=== PATIENT | male | born 1965 | race Caucasian/White ===

== ENCOUNTER 2018-11-21 05:25 | Day surgery (SDC) | payer OTHER ==
[2018-11-13 16:01] LABS: BASOPHILS # (AUTO) 0.1 X10'3 (0-0.2); BASOPHILS % (AUTO) 1.2 % (0-1); EOSINOPHILS # (AUTO) 0.2 X10'3 (0-0.9); EOSINOPHILS % (AUTO) 1.3 % (0-6); HEMATOCRIT 51.9 % (42.0-52.0); HEMOGLOBIN 17.4 g/dl (14.0-17.9); LYMPHOCYTES # (AUTO) 2.2 X10'3 (1.1-4.8); LYMPHOCYTES % (AUTO) 18.2 % (21-51); MEAN CORPUSCULAR HEMOGLOBIN 30.3 PG (27.0-31.0); MEAN CORPUSCULAR HGB CONC 33.6 g/dL (33.0-36.5); MEAN PLATELET VOLUME 8.4 FL (7.4-10.4); MONOCYTES # (AUTO) 1.1 X10'3 (0-0.9); MONOCYTES % (AUTO) 9.1 % (2-12); NEUTROPHILS # (AUTO) 8.4 X10'3 (1.8-7.7); NEUTROPHILS % (AUTO) 70.2 % (42-75); PLATELET COUNT 357 X10'3 (140-440); RED BLOOD COUNT 5.76 X10'6 (4.70-6.10); RED CELL DISTRIBUTION WIDTH 15.3 % (11.5-14.5)
[2018-11-13 16:19] LABS: ALANINE AMINOTRANSFERASE 59 U/L (12-78); ALBUMIN 2.9 G/DL (3.4-5.0); ALBUMIN/GLOBULIN RATIO 0.6 (1.1-1.5); ALKALINE PHOSPHATASE 106 IU/L (46-116); ANION GAP 8 (8-16); BILIRUBIN,TOTAL 0.3 MG/DL (0.1-1.0); BLOOD UREA NITROGEN 21 MG/DL (7-18); BUN/CREATININE RATIO 28.4 (5.4-32.0); CALCIUM 9.6 MG/DL (8.5-10.1); CHLORIDE 103 MMOL/L (99-107); CREATININE 0.74 MG/DL (0.60-1.10); GLUCOSE 237 MG/DL (70-104); SODIUM 138 MMOL/L (135-145); TOTAL CARBON DIOXIDE 27.2 MMOL/L (24-32); TOTAL PROTEIN 7.8 G/DL (6.4-8.2); eGFR > 90 ML/MIN
[2018-11-13 16:23] LABS: POTASSIUM 4.8 MMOL/L (3.5-5.1)
[2018-11-13 16:29] LABS: ASPARTATE AMINO TRANSFERASE 47 U/L (10-37)
[~2018-11-21] VITALS: Ht 167.6 cm; Wt 123.0 kg
[2018-11-21] VITALS (7 sets, daily range): BP systolic 123–156; BP diastolic 72–88
[~2018-11-21 05:25] MED LIST: CHOL100046 PO; GABA-532 PO; HYDR-4353 PO; IBUP-1984 PO; INSU100C10 SQ; LISI-600 PO; METF500T PO; METO100T7 PO; MULT-1085 PO; SERT25TA PO; VITA1CAP19 PO; ringers solution, lacted 1,000 ML IV SCH
[2018-11-21] MEDS ORDERED: famotidine 20mg tablet PO ONE (05:30)
[2018-11-21] MEDS ORDERED: DOCUMENT DATE & TIME OF BETA-BLOCKER PO ONE (05:30)
[2018-11-21] MEDS ORDERED: ceFAZolin inj. 3,000 MG in normal saline 100ml IV soln 100 ML IV ONE (05:30)
[2018-11-21] MEDS ORDERED: LIDOcaine 1% (10mg/ml) 2ml vial ONE (06:09)
[2018-11-21] MEDS ORDERED: BUPIVAcaine/PF 2.5mg/ml (0.25%) 10ml vial ONE (06:34)
[2018-11-21] MEDS ORDERED: LIDOcaine 0.5% (5mg/ml) 50ml vial ONE (07:20)
[2018-11-21] MEDS ORDERED: fentaNYL/PF 50MCG/1 ML 2ML syringe ONE (07:26)
[2018-11-21] MEDS ORDERED: MIDAZolam 5mg/5ml vial ONE (07:26)
--- NOTE | 2018-11-21 07:54 | NUR ---
Received from OR via , accompanied by Anesthesiologist DR. THAYER and report given by Anesthesiolgist. PATIENT ARRIVED VIA [facility] CHARTED, 02 SAT 94% ON RA, ELIDA BANDAGE TO RIGHT WRSIT, CDI, CAP REFIL LESS THEN 3 SECONDS, IVF INFUSING ORDERED. WILL CONTINUE TO MONITOR.
[2018-11-21] MEDS ORDERED: HYDROcodone/acetaminophen 10/325mg tab PO PRN (08:00)
--- NOTE | 2018-11-21 08:00 | NUR ---
BLOOD SUGAR 173
[2018-11-21] MEDS ORDERED: ringers solution, lacted 1,000 ML IV SCH (08:06)
[2018-11-21] MEDS ORDERED: proCHLORperazine 10 MG/2 ml inj IV PRN (08:10)
[2018-11-21] MEDS ORDERED: meperidine/PF 25mg/ml syringe IV PRN ×2 (08:10)
[2018-11-21] MEDS ORDERED: ondansetron/PF 4mg/2ml inj IV PRN (08:10)
[2018-11-21] MEDS ORDERED: morphine 4 MG/ML inj SYRINge IV PRN ×2 (08:10)
[2018-11-21] MEDS ORDERED: labetalol 20mg/4ml (5mg/ml) syringe IV ONE (08:14)
[2018-11-21] MEDS: meperidine/PF 25mg/ml syringe IV PRN ×2 (08:16→08:25)
--- NOTE | 2018-11-21 08:43 | NUR ---
PATIENT DISCHARGE CRITERIA MET. PATIENT DISCHARGE INSTRUCTIONS GIVEN, PATIENT AND FAMILY VERBALIZED UNDERSTANDING. PIV DC'D, CATH TIP INTACT, SC'DS REMOVED, VSS CHARTED, ELIDA BANDAGE TO RIGHT WRIST CDI. PATIENT TO PERSONAL VEHICLE WITH ALL PERSONAL BELONGINGS, ACCOMPANIED BY STAFF AND FAMILY.
== END 2018-11-21 08:43 | disposition home or self-care (01) ==
LOC: PAS 05:25
PROVIDERS: ATTEND Orthopaedic Surgery
DX: G56.03 Carpal tunnel syndrome, bilateral upper limbs (principal); M19.011 Primary osteoarthritis, right shoulder; M19.111 Post-traumatic osteoarthritis, right shoulder; Z96.611 Presence of right artificial shoulder joint; Z79.899 Other long term (current) drug therapy; Z79.4 Long term (current) use of insulin; Z98.890 Other specified postprocedural states; Z80.9 Family history of malignant neoplasm, unspecified; Z82.0 Family history of epilepsy and other diseases of the nervous system; F17.210 Nicotine dependence, cigarettes, uncomplicated; Z72.89 Other problems related to lifestyle
CPT/HCPCS: 36415; 64721; 80053; 82948; 85025; 93005; A6222; A6449; A6454; J0690; J2001; J2175; J2250; J3010; J3490; J7120; A7000; J7030